=== PATIENT | male | born 1970 | race Caucasian/White ===

== ENCOUNTER 2016-11-27 20:23 | Inpatient (IN) | payer SELFPAY ==
[~2016-11-27] VITALS: Ht 170.2 cm; Wt 93.1 kg
[~2016-11-27 20:23] MED LIST: NAPROSYN500 MG PO
[2016-11-27 20:35] LABS: BASOPHIL COUNT 0.1 K/uL (0-0.1); EOSINOPHIL (%) 2.6 % (0-5); EOSINOPHIL COUNT 0.4 K/uL (0-0.3); HEMATOCRIT 43.4 % (38.0-50.0); IMMATURE GRANULOCYTE (%) 0.3 % (0.0-0.7); INSTRUMENT ABS NEUTROPHIL CT 8.3 K/uL; LYMPHOCYTE COUNT 5.9 K/uL (1.0-2.8); MCHC 34.1 G/DL (30.0-36.0); MCV 93.7 FL (86-99); MEAN PLAT.VOLUME 10.3 uM^3 (9.0-12.4); MONOCYTE (%) 5.5 % (3-12); MONOCYTE COUNT 0.9 K/uL (0-0.8); NEUTROPHIL (%) 53.1 % (45-76); NEUTROPHIL COUNT 8.3 K/uL (1.8-6.4); PLATELET COUNT 263 K/uL (156-360); RBC DIS.WIDTH-CV 12.4 % (11.8-14.6); RED BLOOD COUNT 4.63 M/uL (4.00-5.50); WHITE BLOOD COUNT 15.6 K/uL (4.1-10.2)
[2016-11-27 20:57] LABS: PROTHROMBIN TIME 10.6 SEC (10.2-12.9)
[2016-11-27 21:00] LABS: PTT 31.2 SEC (25-37); TROP-I INTERPRETATION NEGATIVE; TROPONIN-I 0.05 ng/mL (0.0-0.30)
[2016-11-27 21:35] LABS: AMYLASE 31 IU/L (1-118); ANION GAP 14 MEQ/L (2-14); CHLORIDE 105 MEQ/L (99-109); GFR ESTIMATE (CALCULATED) > 59 mL/min/; GLUCOSE 105 mg/dL (70-99); LIPASE 19 U/L (1.0-51.0); POTASSIUM 3.6 MEQ/L (3.7-5.4); SAMPLE HEMOLYSIS CHECK 0; SAMPLE ICTERIC CHECK 0; SAMPLE LIPEMIA CHECK 0; SERUM ETHYL ALCOHOL < 10 mg/dL; SODIUM 143 MEQ/L (136-147); UREA NITROGEN (BUN) 12 mg/dL (9-23)
[2016-11-27 22:30] VITALS: BP 148/83
[2016-11-27 22:45] VITALS: BP 148/83
[2016-11-27 23:00] VITALS: BP 140/71
[2016-11-28] VITALS: BP 143/88
[2016-11-28 00:30] LABS: METH RESISTANT S AUREUS PCR NEGATIVE (NEGATIVE)
[2016-11-28 00:41] LABS: ADD MIUA? YES; BILIRUBIN NEGATIVE; BLOOD SMALL; COLOR YELLOW ((YELLOW)); GLUCOSE (STRIP) NEGATIVE; KETONES NEGATIVE; LEUKOCYTES NEGATIVE; NITRITE NEGATIVE; PROTEIN (STRIP) 30; UROBILINOGEN 0.2 MG/DL (0.2-1.0)
[2016-11-28 00:45] LABS: BACTERIA RARE /HPF; EPITHELIAL CELLS RARE /HPF; MUCUS TRACE /LPF; RED BLOOD CELLS 0-5 /HPF (0-5); UCUL ADDED? NO; WHITE BLOOD CELLS 0-5 /HPF (0-5)
[2016-11-28 00:50] LABS: AMPHETAMINE PRESUMPTIVE POSITIVE (500 ng/mL); BARBITURATES NEGATIVE (200 ng/mL); BENZODIAZEPINES NEGATIVE (150 ng/mL); COCAINE PRESUMPTIVE POSITIVE (150 ng/mL); METHADONE NEGATIVE (200 ng/mL); METHAMPHETAMINE PRESUMPTIVE POSITIVE (500 ng/mL); OPIATES (MORPHINE) PRESUMPTIVE POSITIVE (100 ng/mL); OXYCODONE PRESUMPTIVE POSITIVE (100 ng/mL); PHENCYCLIDINE NEGATIVE (25 ng/mL); PROPOXYPHENE NEGATIVE (300 ng/mL); THC CANNABINOIDS NEGATIVE (50 ng/mL); TRICYCLIC ANTIDEPRESSANTS NEGATIVE (300 ng/mL)
[2016-11-28 00:51] LABS: ADD MEDTOX COMMENT Y; INTERNAL CONTROLS VALID? YES
[2016-11-28 00:53] LABS: PROBE CHECK PASS; SPECIMEN PROCESSING CONTROL PASS
[2016-11-28 01:02] LABS: SPECIFIC GRAVITY 1.055 (1.000-1.030)
[2016-11-28 01:22] LABS: AMPHETAMINES QUANT VALUE 0 NG/ML
[2016-11-28 02:00] VITALS: BP 142/77
== END 2016-11-28 03:24 | disposition short-term general hospital (02) | DRG 271 ==
LOC: EME → EDBD 20:23 → EME 20:23 → ENRESERV 20:53 → CATH 21:15 → EME 21:15 → ENRESERV 21:17 → 4WEST 22:35
PROVIDERS: Internal Medicine; Internal Medicine Interventional Cardiology
PROC: 5A02210 Assistance with Cardiac Output using Balloon Pump, Continuous (ICD-10-PCS; principal; 2016-11-27)
PROC: B2151ZZ Fluoroscopy of Left Heart using Low Osmolar Contrast (ICD-10-PCS; principal; 2016-11-27)
PROC: B2111ZZ Fluoroscopy of Multiple Coronary Arteries using Low Osmolar Contrast (ICD-10-PCS; principal; 2016-11-27)
PROC: 5A2204Z Restoration of Cardiac Rhythm, Single (ICD-10-PCS; principal; 2016-11-27)
PROC: 02HV33Z Insertion of Infusion Device into Superior Vena Cava, Percutaneous Approach (ICD-10-PCS; principal; 2016-11-27)
PROC: 4A023N7 Measurement of Cardiac Sampling and Pressure, Left Heart, Percutaneous Approach (ICD-10-PCS; principal; 2016-11-27)
DX: I21.29 ST elevation (STEMI) myocardial infarction involving other sites (principal); I47.2 Ventricular tachycardia; I25.10 Atherosclerotic heart disease of native coronary artery without angina pectoris; I34.0 Nonrheumatic mitral (valve) insufficiency; Z87.891 Personal history of nicotine dependence; Z82.49 Family history of ischemic heart disease and other diseases of the circulatory system
CPT/HCPCS: 71010; 80048; 81003; 82150; 83690; 84484; 84999; 85025; 85347; 85610; 85730; 86850; 86900; 86901; 87641; 93005; 99281; 99285; C1725; C1769; C1887; C1894; G0480; J0282; J0461; J1644; J2250; J2270; J3010; J7040

== ENCOUNTER 2017-09-07 15:27 | Emergency (ER) | payer BC ==
[~2017-09-07] VITALS: Ht 170.2 cm; Wt 88.0 kg
[2017-09-07 16:04] LABS: HEMATOCRIT 34.6 % (38.0-50.0); HEMOGLOBIN 11.9 G/DL (12.5-16.6); MCH 32.2 PG (29.0-34.0); MCHC 34.4 G/DL (30.0-36.0); MCV 93.8 FL (86-99); PLATELET COUNT 256 K/uL (156-360); RBC DIS.WIDTH-CV 12.6 % (11.8-14.6); RBC DIS.WIDTH-SD 43.5 % (39-53); RED BLOOD COUNT 3.69 M/uL (4.00-5.50); WHITE BLOOD COUNT 7.9 K/uL (4.1-10.2)
[2017-09-07 16:14] LABS: CHLORIDE 111 mEq/L (99-109); POTASSIUM 3.8 mEq/L (3.7-5.4); SODIUM 143 mEq/L (136-147)
[2017-09-07 16:15] LABS: GLUCOSE 116 mg/dL (70-99)
[2017-09-07 16:19] LABS: GFR ESTIMATE (CALCULATED) > 59 mL/min/ (58.99-99999)
[2017-09-07 16:20] LABS: UREA NITROGEN (BUN) 8 mg/dL (9-23)
[2017-09-07 16:23] LABS: TROP-I INTERPRETATION NEGATIVE; TROPONIN-I 0.04 ng/mL (0.0-0.30)
[2017-09-07 19:28] LABS: SERUM ETHYL ALCOHOL < 10 mg/dL
[2017-09-07 19:38] VITALS: BP 135/63
== END 2017-09-07 19:38 | disposition left against medical advice (07) ==
LOC: EME 15:27
DX: R41.0 Disorientation, unspecified (principal); I25.2 Old myocardial infarction; Z79.82 Long term (current) use of aspirin; F17.210 Nicotine dependence, cigarettes, uncomplicated; F32.9 Major depressive disorder, single episode, unspecified; Z95.1 Presence of aortocoronary bypass graft; K21.9 Gastro-esophageal reflux disease without esophagitis; Z88.5 Allergy status to narcotic agent
CPT/HCPCS: 71046; 80048; 84484; 85027; 93005; 99281; 99285; G0480

== ENCOUNTER 2017-10-28 08:14 | Emergency (ER) | payer BC ==
[~2017-10-28] VITALS: Ht 167.6 cm; Wt 89.1 kg
[2017-10-28 09:03] LABS: HEMATOCRIT 35.3 % (38.0-50.0); HEMOGLOBIN 11.9 G/DL (12.5-16.6); MCH 32.4 PG (29.0-34.0); MCHC 33.7 G/DL (30.0-36.0); MCV 96.2 FL (86-99); PLATELET COUNT 212 K/uL (156-360); RBC DIS.WIDTH-SD 46.4 % (39-53); RED BLOOD COUNT 3.67 M/uL (4.00-5.50); WHITE BLOOD COUNT 10.6 K/uL (4.1-10.2)
[2017-10-28 09:12] LABS: INTER. NORMALIZED RATIO 0.9
[2017-10-28 09:14] LABS: ALBUMIN 4.2 g/dL (3.2-4.8); CHLORIDE 107 mEq/L (99-109); POTASSIUM 4.8 mEq/L (3.7-5.4); SODIUM 140 mEq/L (136-147)
[2017-10-28 09:15] LABS: PTT 26.8 SEC (25-37)
[2017-10-28 09:16] LABS: GLUCOSE 105 mg/dL (70-99); TOTAL PROTEIN 7.1 g/dL (6.4-8.3)
[2017-10-28 09:18] LABS: TOTAL BILIRUBIN 0.2 mg/dL (0.0-1.0)
[2017-10-28 09:20] LABS: ALKALINE PHOSPHATASE 65 IU/L (3-129); CREATININE 1.1 mg/dL (0.6-1.3); GFR ESTIMATE (CALCULATED) > 59 mL/min/ (58.99-99999)
[2017-10-28 09:21] LABS: UREA NITROGEN (BUN) 21 mg/dL (9-23)
[2017-10-28 09:22] LABS: AST (GOT) 17 IU/L (2-34)
[2017-10-28 09:23] LABS: ALT (GPT) 14 IU/L (3-49)
[2017-10-28 10:15] VITALS: BP 154/92
== END 2017-10-28 10:18 | disposition home or self-care (01) ==
LOC: EME 08:14
PROVIDERS: Emergency Medicine
DX: S61.412A Laceration without foreign body of left hand, initial encounter (principal); W26.8XXA Contact with other sharp object(s), not elsewhere classified, initial encounter; Z23 Encounter for immunization; I25.2 Old myocardial infarction; Z95.1 Presence of aortocoronary bypass graft; Z79.02 Long term (current) use of antithrombotics/antiplatelets; F17.200 Nicotine dependence, unspecified, uncomplicated
CPT/HCPCS: 80053; 85027; 85610; 85730; 99281; 99284